=== PATIENT | male | born 1965 | race Caucasian/White ===

== ENCOUNTER 2018-08-03 20:05 | Emergency (ER) | payer OTHER ==
[~2018-08-03] VITALS: Ht 180.3 cm; Wt 79.4 kg
--- NOTE | 2018-08-03 20:53 | NUR ---
PT SELF-AMBULATED INTO THE DEPARTMENT FOR WOUND CHECK. PT IS A/OX4, S/P ELECTIVE LIPOMA REMOVAL FROM L AXILLARY AND L FLANK AREA. PT STATES HE WANTED TO MAKE SURE HIS STITCHES WERE CLOSING UP. PT DENIES PAIN, C/P, SOB, N/V/D, DIZZINESS, HEADACHE. ER MD AT BEDSIDE FOR MSE.
--- NOTE | 2018-08-03 21:04 | NUR ---
Patient discharged to home in stable conditon. Written and verbal after care instructions given. Patient verbalizes understanding of instructions.
== END 2018-08-03 21:04 | disposition home or self-care (01) ==
LOC: ER 20:07
DX: T81.33XA Disruption of traumatic injury wound repair, initial encounter (principal)
CPT/HCPCS: A4663

== ENCOUNTER 2019-07-02 19:04 | Emergency (ER) | payer OTHER ==
[~2019-07-02] VITALS: Ht 172.7 cm; Wt 83.9 kg
[2019-07-02] MEDS ORDERED: ONDANSETRON 4 MG/2 ML VIAL IM ONE (19:45)
[2019-07-02] MEDS ORDERED: HYDROMORPHONE 1 MG/1 ML DISP.SYRIN IM ONE (19:45)
[2019-07-02] MEDS ORDERED: ONDANSETRON 4 MG/2 ML VIAL ONE (19:58)
[2019-07-02] MEDS ORDERED: HYDROMORPHONE 2 MG/1 ML DISP.SYRIN ONE (19:58)
--- NOTE | 2019-07-02 21:33 | NUR ---
Written and verbal after care instructions given. Patient verbalizes understanding of instructions. Patient discharged home in stable condition and instructed not to drive.
[2019-07-02 21:35] VITALS: BP 121/74
== END 2019-07-02 21:36 | disposition home or self-care (01) ==
LOC: ER 19:04
DX: M54.41 Lumbago with sciatica, right side (principal)
CPT/HCPCS: 72100; 96372 ×2; 99283; J1170; J2405; A4663